=== PATIENT | male | born 1960 | race Caucasian/White ===

== ENCOUNTER 2018-06-02 08:47 | Emergency (ER) | payer OTHER ==
[~2018-06-02] VITALS: Ht 185.4 cm; Wt 90.7 kg
[2018-06-02] MEDS ORDERED: ASPIR 8181 MG PO (09:09)
[2018-06-02 09:35] LABS: ABSOLUTE LYMPHOCYTES 1.7 thou/uL (0.8-5.3); ABSOLUTE MONOCYTES 0.5 thou/uL (0.0-1.2); ABSOLUTE NEUTROPHILS 4.4 thou/uL (1.6-8.1); BASOPHILS 0.6 %; EOSINOPHILS 0.4 %; HEMATOCRIT 45.6 % (42.0-52.0); HEMOGLOBIN 15.5 gm/dL (14.0-18.0); LYMPHOCYTES 25.7 %; MCH 31.5 pg (26.0-34.0); MCHC 33.9 g/dL (28.0-37.0); MCV 93.1 fL (80.0-100.0); MONOCYTES 8.2 %; MPV 8.7 fl. (7.2-11.1); NUCLEATED RBCS 0 /100WBC; PLATELET COUNT* 261 thou/uL (150-400); POLYS 65.1 %; RDW-CV 13.3 % (10.5-14.5); WBC 6.7 thou/uL (4.0-11.0)
[2018-06-02 09:52] LABS: ALBUMIN 3.7 g/dL (3.4-5.0); ALKALINE PHOSPHATASE 104 U/L (46-116); ANION GAP 5 mmol/L (7-16); BUN 14 mg/dL (7-18); CALCIUM 8.5 mg/dL (8.5-10.1); CHLORIDE 103 mmol/L (98-107); CO2 30 mmol/L (21-32); CREATININE 1.2 mg/dL (0.6-1.3); GLUCOSE 172 mg/dL (70-99); LIPASE 45 U/L (73-393); POTASSIUM 4.3 mmol/L (3.5-5.1); SGOT 15 U/L (15-37); SGPT 28 U/L (30-65); SODIUM 138 mmol/L (136-145); TOTAL BILIRUBIN 0.4 mg/dL (<0.1-1.0); TOTAL PROTEIN 7.1 g/dL (6.4-8.2); TROPONIN-I LEVEL <0.06 ng/mL (<0.06)
[2018-06-02 10:09] LABS: URINE BILIRUBIN NEGATIVE (Negative); URINE BLOOD 3+ (Negative); URINE CLARITY CLEAR; URINE COLOR YELLOW; URINE GLUCOSE-RANDOM NEGATIVE (Negative); URINE KETONES NEGATIVE (Negative); URINE LEUKOCYTES-REFLEX NEGATIVE (Negative); URINE NITRITE-REFLEX NEGATIVE (Negative); URINE PROTEIN NEGATIVE (Negative); URINE SPECIFIC GRAVITY >= 1.030 (1.005-1.030); URINE UROBILINOGEN 0.2 E.U./dl (0.2-1.0)
[2018-06-02 10:19] LABS: MUCUS 4-6 Moderate strn/LPF (None Seen); URINE RBC 3-10 Few /HPF (0-2); URINE WBC-REFLEX None Seen /HPF (0-5)
[2018-06-02 10:20] LABS: SQUAMOUS 4-10 Moderate /LPF (0-3)
[2018-06-02 10:21] LABS: BACTERIA-REFLEX 1-9 Few /HPF (None Seen); CASTS None Seen /LPF (None Seen); CRYSTALS None Seen /LPF (None Seen); YEAST-REFLEX Present (None Seen)
[2018-06-02] MEDS ORDERED: ZOFRAN ODT4 MG DISSOLVE (10:45)
[2018-06-02] MEDS ORDERED: FLOMAX0.4 MG PO (10:45)
[2018-06-02] MEDS ORDERED: HYDROCODONE-AP1 EAC6 PO (10:45)
[2018-06-02 11:05] VITALS: BP 139/87
--- NOTE | 2018-06-04 14:58 | EKG ---
[place] [address] ELECTROCARDIOGRAM REPORT Name: KARLA DOUGLAS Room: [facility]#: [id number] Admission: 06/02/18 Attend Phys: Discharge: 06/02/18 Date of : 58 Report #: [id number] THIS REPORT FOR: //name// [facility] ED Test Date: 2018-06-02 Test Time: 09:24:27 Pat Name: KARLA DOUGLAS Department: Room: Gender: Recycle Worker: Estefania ANDERSEN : 1960 Requested By: Delano Panda Order Number: [id number] MD: Ritesh Tenorio Measurements Intervals [place] Rate: 70 P: CO: QRS: 57 QRSD: 114 T: 4 QT: 404 QTc: 436 Interpretive Statements Atrial fibrillation No previous ECG available for comparison Electronically Signed On 06-04-2018 14:57:56 CDT by Ritesh Tenorio [email or web address] <ELECTRONICALLY SIGNED> By: Ritesh Tenorio MD, [facility] 06/04/18 1457 0924 3 Ritesh Tenorio MD, FACC /EPI
== END 2018-06-02 11:05 | disposition home or self-care (01) ==
LOC: M.ERS 08:47
PROVIDERS: Emergency Medicine Emergency Medical Services
DX: N20.0 Calculus of kidney (principal); I48.91 Unspecified atrial fibrillation; Z87.891 Personal history of nicotine dependence